=== PATIENT | female | born 1980 | race African-American/Black ===

== ENCOUNTER → 2020-04-23 01:48 | Outpatient (CLI) | payer OTHER, SELFPAY ==
[2020-04-23 19:35] LABS: SARS-CoV-2 RNA PCR Negative
== END ==
PROVIDERS: Visit Provider Plastic Surgery
DX: Z01.812 Encounter for preprocedural laboratory examination (principal); Z20.822 Contact with and (suspected) exposure to COVID-19
CPT/HCPCS: C9803; U0003; U0005

== ENCOUNTER 2020-04-26 00:36 | Day surgery (SDC) | payer OTHER, SELFPAY ==
[2020-04-19 16:37] VITALS: BMI 39.9
--- NOTE | 2020-04-26 07:12 | WPDHPUPDATE1 ---
History and Physical Update Update Date/Time: 04/26/20 07:12 History and Physical has been reviewed, including an updated exam of the patient. There are NO changes in the patient's condition. Risks, benefits, and alternatives have been discussed and questions answered. Patient agrees to proceed with procedure.
[2020-04-26 10:35] VITALS: BP 130/75; PULSE 88; RESP 20; TEMP 37.1; O2SAT 99
--- NOTE | 2020-04-26 11:19 | WPDANESEPPF ---
Anes - Initial Pre Proc Eval Procedure: Operation Date: 04/26/20 12:00 Proposed Procedures p Right Open Carpal Tunnel Release, Injection Of Bilateral First Dorsal Compartment With Kenalog - Oracio Gordon MD Date/Time: 04/26/20 11:19 Surgeon: Oracio Gordon MD Pre Op Diagnosis: Right Carpal Tunnel,Right First Dorsal Compartment Patient Data Age: 39 Gender: F Height: 5 ft 7 in Weight: 115.8 kg Last Vital Signs Temp 98.7 F 04/26/20 10:35 Pulse 88 04/26/20 10:35 Resp 20 04/26/20 10:35 BP 130/75 04/26/20 10:35 Pulse Ox 99 04/26/20 10:35 Allergies Allergy/AdvReac Type Severity Reaction Status Date / Time amoxicillin Allergy Severe Anaphylaxis Verified 04/19/20 16:29 ibuprofen Allergy Severe Hives Verified 04/26/20 10:33 nitrofurantoin AdvReac Severe NAUSEA/VOMI Verified 04/26/20 10:33 [From Macrobid] TING ALL CILLINS Allergy Severe Anaphylaxis Uncoded 04/26/20 10:33 Home Medications Medication Instructions Recorded Confirmed Type bupropion HCl 150 mg PO DAILY 04/19/20 04/26/20 History cetirizine [Zyrtec] 10 mg PO DAILY 04/19/20 04/26/20 History Patient hx anesthesia problems: none Family hx anesthesia problems: none [facility] Past Medical History Medical History (Updated 04/26/20 @ 11:19 by Олег Francis MD) ADHD (attention deficit hyperactivity disorder) Migraine Morbid obesity Social History Social History Smoking status: Never smoker Second hand tobacco smoke exposure: No Alcohol intake: current Drinks per week: 2 Substance use: never Living arrangements: with family Spiritual care concerns: No Anes - Eval Final PreProcedure Day of Procedure 04/26/20 11:19 Patient weight: morbidly obese Heart: regular rate and rhythm Lungs: clear to auscultation Airway: Mallampati scale class II Neurological: alert and oriented Last oral intake: >/= 8 hours ASA classification: III Emergent: no Anesthetic plan: proceed Anesthesia type and monitoring: general GIVS and standard monitoring Informed Consent: The patient's anesthetic plan and its attendant risks and benefits were discussed with the patient/family/POA. Questions were solicited and answers provided to the satisfaction of the patient/family/POA.
[2020-04-26] MEDS: LACTATED RINGERS 1,000 ML 30 ML IV CONT (11:40)
[2020-04-26] MEDS: LIDO 1%/EPINEPHRINE 1:100,000 50 ML VIAL INFILTRATE (12:17)
[2020-04-26] MEDS: TRIAMCINOLONE ACET INJ 40 MG/ML VIAL IM (12:23)
[2020-04-26 12:32] VITALS: BP 119/78; PULSE 102; RESP 14; O2SAT 92
--- NOTE | 2020-04-26 12:40 | PM.OP ---
Procedure Note - Brief Procedure Note - Brief Date of procedure: 04/26/20 Pre-op diagnosis: Right Carpal Tunnel,Right First Dorsal Compartment Post-op diagnosis: same Procedure performed: R OCTR. Inject Kenalog 40/ml, 32 mg each first dorsal compartment. Anesthesia: MAC Surgeon: Oracio Gordon MD Estimated blood loss (mL): 1 Tourniquet time (min): 8 Drains: No Packing: No Pathology: none sent Complications: No immediate complications Condition: stable Disposition: same day
--- NOTE | 2020-04-26 12:43 | PM.PROC ---
Procedure Note - Detailed Date of procedure: 04/26/20 Pre-op diagnosis: Right Carpal Tunnel,Right First Dorsal Compartment Post-op diagnosis: same Procedure performed: Right open carpal tunnel release. Injection of 32 mg of Kenalog 40 per each 1st dorsal compartment Description of procedure: The right carpal tunnel and the right and left 1st dorsal compartments were marked on the patient in the holding area. She was then taken to the operating room and placed supine on the operating table. A time-out was held and confirmed. She was given IV sedation. The right upper extremity was prepped and draped in usual fashion. The marking was reconfirmed on the palm. The area was infiltrated with 1% lidocaine with epinephrine. The tourniquet was inflated to 250 mmHg. The incision was made in the palm as marked and carried bluntly through the subcutaneous tissue to the palmar fascia. This and the carpal ligament were incised with a 15. Blade. The canal was opened. The carpal ligament was incised distally and proximally for complete release. There was no unusual anatomy noted. The skin was closed with interrupted 5 0 nylon suture. At that point the Kenalog 0.8 milliliter was injected via 25 gauge needle to the right 1st dorsal compartment. This was followed by injection of 0.8 milliliter of Kenalog 40 injected into the left 1st dorsal compartment after alcohol wipe could the bandage was applied to the right carpal tunnel bandage were applied from the 1st dorsal compartments the patient was discharged from the operating room stable condition. She is being discharged with instructions in wound care and follow-up she has a prescription for hydrocodone 8 sent to her pharmacy Surgeon: Oracio Gordon MD
[2020-04-26] MEDS: ONDANSETRON INJ 4 MG/2 ML VIAL IV PUSH (12:50)
[2020-04-26 13:00] VITALS: BP 121/78; PULSE 77
[2020-04-26 13:30] VITALS: BP 132/70; PULSE 63
[2020-04-26 14:00] VITALS: BP 139/74; PULSE 103
[2020-04-26] MEDS: oxyCODONE HCL (*CRX) 5 MG TAB IR PO (14:30)
--- NOTE | 2020-04-26 16:28 | SUR.PHASEII ---
About 1420: Patient complained of fingers being warm to the touch and that pinky on rt hand was turning purple. RN checked capillary refill and it was normal. RN also checked dressing for being too tight. RN called quality systems manager to come and check for a second opinion to put patient at peace. Patient was very anxious. Dr. Augustin happened to walk by the room and he assessed the situation for himself. Patient took Dr Augustin's word for it and was ready to have IV taken out and go over d/c instructions. At this time, Sri DE GUZMAN, gave instructions to patient and discontinued her IV. Patient got dressed and was sent on her way.
--- NOTE | 2020-04-26 16:44 | SUR.PHASEII ---
Vitals delayed because patient wasn't very cooperative and was waiting for ride after using the bathroom.
== END 2020-04-26 15:05 | disposition home or self-care (01) ==
PROVIDERS: PCP Nurse Practitioner Family; Visit Provider Plastic Surgery
PROC: (CPT 64721; principal; 2020-04-26 12:00)
DX: G56.01 Carpal tunnel syndrome, right upper limb (principal); M65.4 Radial styloid tenosynovitis [de Quervain]; F90.9 Attention-deficit hyperactivity disorder, unspecified type; E66.01 Morbid (severe) obesity due to excess calories; Z68.41 Body mass index [BMI] 40.0-44.9, adult
CPT/HCPCS: 64721; 20550; A9270; J1100; J2250; J2405; J2704; J3010; J3301; J7120